=== PATIENT | female | born 1955 | race African-American/Black ===

== ENCOUNTER 2019-08-28 09:40 | Emergency (ER) | payer OTHER ==
[2019-08-29 14:12] LABS: SARS-CoV-2 MS2 Positive; SARS-CoV-2 N Gene Negative; SARS-CoV-2 S Gene Negative; SARS-CoV-2 orf1ab Negative
== END 2019-08-28 10:12 | disposition home or self-care (01) ==
LOC: ERS 09:40
DX: Z20.828 Contact with and (suspected) exposure to other viral communicable diseases (principal); F17.210 Nicotine dependence, cigarettes, uncomplicated; Z79.899 Other long term (current) drug therapy
CPT/HCPCS: 87635; 99283; U0003